=== PATIENT | female | born 2000 | race Caucasian/White ===

== ENCOUNTER → 2022-12-20 | Outpatient (CLI) | payer SELFPAY ==
--- NOTE | 2022-12-20 16:35 | RAD_ITS ---
STUDY: X-RAY - LUMBAR SPINE REASON FOR EXAM: Female, 22 years old. Low back pain after horse injury. TECHNIQUE: 5 view(s) of the lumbar spine were obtained. COMPARISON: None FINDINGS: Normal lumbar lordosis. There is no substantial scoliosis. There is a normal alignment of the vertebrae. Normal vertebral bodies and endplates. Normal disc space heights. The soft tissue structures are normal. RAD/L/S Spine Min 4 Views IMPRESSION: Normal x-ray examination of the lumbar spine. Electronically Signed: Michael Lopez MD at 11:25 EDT ,
== END | disposition home or self-care (01) ==
LOC: RAD 16:24
PROVIDERS: Referring Provider Chiropractor Orthopedic; Visit Provider Chiropractor Orthopedic
DX: M99.03 Segmental and somatic dysfunction of lumbar region (principal); M54.50 Low back pain, unspecified
CPT/HCPCS: 72110